=== PATIENT | female | born 1985 | race Caucasian/White ===

== ENCOUNTER 2017-05-11 18:44 | Emergency (ER) | payer SELFPAY ==
[~2017-05-11] VITALS: Ht 172.7 cm; Wt 109.0 kg
[2017-05-11 23:57] VITALS: BP 130/70
== END 2017-05-11 23:58 | disposition home or self-care (01) ==
LOC: EME 18:44
DX: M62.830 Muscle spasm of back (principal); R10.9 Unspecified abdominal pain; M79.604 Pain in right leg; Z90.721 Acquired absence of ovaries, unilateral; F17.200 Nicotine dependence, unspecified, uncomplicated
CPT/HCPCS: 99281; 99284; J1885; J2270; J3360